=== PATIENT | male | born 1970 | race Caucasian/White ===

== ENCOUNTER 2016-11-28 12:09 | Emergency (ER) | payer MEDICARE, MEDICAID ==
[~2016-11-28] VITALS: Ht 182.9 cm; Wt 83.9 kg
[~2016-11-28 12:09] MED LIST: ATIVAN1 MG ORAL; CYMBALTA20 MG ORAL; KLONOPIN1 MG ORAL; ZYPREXA2.5 MG ORAL
[2016-11-28] MEDS ORDERED: Norco 5mg/325mg tab ORAL ONE (12:15)
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
[2016-11-28] MEDS ORDERED: NORCO 5-325 TA1 EAC1 ORAL (12:55)
[2016-11-28] MEDS ORDERED: BACTRIM DS TAB1 EAC1 ORAL (12:55)
[2016-11-28] MEDS ORDERED: CEPHALEXIN500 MG ORAL (12:55)
[2016-11-28 13:02] VITALS: BP 148/99
== END 2016-11-28 13:05 | disposition home or self-care (01) ==
LOC: EDBD 12:09 → EMR 12:48
DX: L03.115 Cellulitis of right lower limb (principal); Z88.8 Allergy status to other drugs, medicaments and biological substances; Z86.59 Personal history of other mental and behavioral disorders
CPT/HCPCS: 99282